=== PATIENT | female | born 1935 | race Caucasian/White ===

== ENCOUNTER → 2016-05-31 | Outpatient (CLI) | payer OTHER | END | disposition home or self-care (01) | DX: R13.10 Dysphagia, unspecified (principal); K21.9 Gastro-esophageal reflux disease without esophagitis | CPT/HCPCS: 92611 GN; G8996 GN; G8997 GN; G8998 GN ==

== ENCOUNTER 2017-01-23 21:14 | Inpatient (IN) | payer OTHER ==
[~2017-01-23] VITALS: Ht 170.2 cm; Wt 82.6 kg
[2017-01-23 22:28] LABS: HEMATOCRIT 38.8 % (36.0-46.0); MCH 31.6 PG (29.0-34.0); MCHC 33.5 G/DL (30.0-36.0); MCV 94.4 FL (83-99); MEAN PLAT.VOLUME 10.2 uM^3 (9.5-12.4); PLATELET COUNT 255 K/uL (156-360); RBC DIS.WIDTH-CV 13.3 % (11.8-14.6); RBC DIS.WIDTH-SD 46.5 % (39-53); RED BLOOD COUNT 4.11 M/uL (3.80-5.20); WHITE BLOOD COUNT 10.1 K/uL (4.1-10.2)
[2017-01-23 22:35] LABS: INTER. NORMALIZED RATIO 1.1; PROTHROMBIN TIME 12.1 SEC (10.2-12.9)
[2017-01-23 22:36] LABS: CHLORIDE 110 mEq/L (99-109); POTASSIUM 3.9 mEq/L (3.7-5.4); SODIUM 142 mEq/L (136-147)
[2017-01-23 22:38] LABS: GLUCOSE 121 mg/dL (70-99)
[2017-01-23 22:40] LABS: ANION GAP 12 MEQ/L (2-14); TOTAL BILIRUBIN 0.2 mg/dL (0.0-1.0)
[2017-01-23 22:42] LABS: ALKALINE PHOSPHATASE 71 IU/L (3-129); GFR ESTIMATE (CALCULATED) > 59 mL/min/
[2017-01-23 22:43] LABS: UREA NITROGEN (BUN) 18 mg/dL (9-23)
[2017-01-23] MEDS ORDERED: BACTRIM,SEPT1 TABLET PO (23:29)
[2017-01-23] MEDS ORDERED: ROGAINE60 ML TP (23:29)
[2017-01-23] MEDS ORDERED: FLUZONE HI180 MCG/08 IM (23:29)
[2017-01-23] MEDS ORDERED: ACIPHEX20 MG PO (23:29)
[2017-01-23] MEDS ORDERED: D-MANNOSE PO (23:30)
[2017-01-24] VITALS (7 sets, daily range): BP systolic 143–181; BP diastolic 64–75
[2017-01-24 01:29] LABS: ADD MIUA? YES; BILIRUBIN NEGATIVE; BLOOD MODERATE; COLOR YELLOW ((YELLOW)); GLUCOSE (STRIP) NEGATIVE; KETONES 20; LEUKOCYTES NEGATIVE; NITRITE NEGATIVE; PROTEIN (STRIP) NEGATIVE; SPECIFIC GRAVITY 1.018 (1.000-1.030); UROBILINOGEN 0.2 MG/DL (0.2-1.0)
[2017-01-24 01:39] LABS: BACTERIA RARE /HPF; EPITHELIAL CELLS RARE /HPF; MUCUS TRACE /LPF; UCUL ADDED? NO; WHITE BLOOD CELLS 0-5 /HPF (0-5)
[2017-01-24 07:01] LABS: HEMATOCRIT 35.4 % (36.0-46.0); MCV 94.7 FL (83-99)
[2017-01-24 15:19] LABS: POINT-OF-CARE METER ID UU14117124
[2017-01-25] VITALS (7 sets, daily range): BP systolic 145–175; BP diastolic 64–91
[2017-01-25 16:59] LABS: HEMATOCRIT 36.2 % (36.0-46.0); MCH 31.9 PG (29.0-34.0); MCHC 32.9 G/DL (30.0-36.0); MCV 97.1 FL (83-99); MEAN PLAT.VOLUME 10.6 uM^3 (9.5-12.4); PLATELET COUNT 206 K/uL (156-360); RBC DIS.WIDTH-CV 13.4 % (11.8-14.6); RBC DIS.WIDTH-SD 48.2 % (39-53); RED BLOOD COUNT 3.73 M/uL (3.80-5.20); WHITE BLOOD COUNT 17.8 K/uL (4.1-10.2)
[2017-01-26 04:48] VITALS: BP 150/65
[2017-01-26 07:35] LABS: ANION GAP 7 MEQ/L (2-14); CHLORIDE 106 MEQ/L (99-109); SAMPLE HEMOLYSIS CHECK 0; SAMPLE ICTERIC CHECK 0; SAMPLE LIPEMIA CHECK 0; SODIUM 136 MEQ/L (136-147)
[2017-01-26 07:40] LABS: GFR ESTIMATE (CALCULATED) > 59 mL/min/; GLUCOSE 125 mg/dL (70-99); UREA NITROGEN (BUN) 12 mg/dL (9-23)
[2017-01-26 07:49] VITALS: BP 135/60
[2017-01-26 16:57] VITALS: BP 131/62
[2017-01-26 19:28] VITALS: BP 148/63
[2017-01-26 23:21] VITALS: BP 134/63
[2017-01-27 07:43] VITALS: BP 125/58
[2017-01-27 12:40] VITALS: BP 141/67
[2017-01-27 16:28] VITALS: BP 144/65
[2017-01-27 23:54] VITALS: BP 137/66
[2017-01-28 07:33] VITALS: BP 113/54
[2017-01-28] MEDS ORDERED: HYDROCODON-ACE1 EAC7 PO (09:52)
[2017-01-28] MEDS ORDERED: DOCUSATE SODIU100 MG PO (09:52)
[2017-01-28] MEDS ORDERED: ASPIRIN EC325 MG PO (09:52)
[2017-01-28] MEDS ORDERED: ADULT FOLDING1 EACH MC (09:54)
[2017-01-28 16:18] VITALS: BP 131/60
[2017-01-31] MEDS ORDERED: TRAMADOL HCL50 MG PO (12:05)
== END 2017-01-28 16:25 | DRG 482 ==
LOC: EME 21:14 → 3EAST 23:20 → EDOF 23:20 → ENRESERV 23:23 → 3EAST 01-24 00:44
PROVIDERS: Emergency Medicine; Orthopaedic Surgery
PROC: 0QS734Z Reposition Left Upper Femur with Internal Fixation Device, Percutaneous Approach (ICD-10-PCS; principal; 2017-01-25)
DX: S72.22XA Displaced subtrochanteric fracture of left femur, initial encounter for closed fracture (principal); R32 Unspecified urinary incontinence; W01.0XXA Fall on same level from slipping, tripping and stumbling without subsequent striking against object, initial encounter; Z79.82 Long term (current) use of aspirin; Z87.440 Personal history of urinary (tract) infections; Z90.710 Acquired absence of both cervix and uterus; Z90.11 Acquired absence of right breast and nipple
CPT/HCPCS: 70450; 71010; 73502; 73552; 76000; 80048; 80053; 81003; 82948; 85014; 85018; 85027; 85610; 85730; 86850; 86900; 86901; 87086; 97530 GP; 99281; 99285; C1713; J0690; J1170; J1200; J2250; J2270; J3010; J7040; J7042